=== PATIENT | male | born 1965 | race Caucasian/White ===

== ENCOUNTER → 2017-02-13 | Outpatient (CLI) | payer OTHER ==
[~2017-02-13] MED LIST: AMLODIPINE BESY10 MG PO; ASPIRIN EC81 M1 PO; GARCINIA CAMBO1 EACH PO; HYDROCHLOROTHIA25 MG PO; METOPROLOL TAR25 MG PO; MOBIC PO; NAPROSYN500 MG PO; TRIAMTERENE-HCT1 TA8 PO
--- NOTE | ~2017-02-13 | CT3 ---
STS. [facility] A Service of [facility] & [facility] RADIOLOGY TEXT RESULTS PATIENT: AVINASH LLAMAS LOCATION: [facility] : 67 UNIT #: [id number] AGE: [address]: Elizabeth Larson MD SEX: M ORDER DR: [id number] [place] [id number] O MR#: [id number] Acc #: [id number] NAME: AVINASH LLAMAS : 1965 SEX: M STUDY DATE/TIME: 02/13/2017 9:47 UNIT: SCT ROOM: STUDY DESCRIPTION: CT Abd and Pelv WWo Cont Attending Physician: Elizabeth Larson M.D. Referring Physician: Elizabeth Larson M.D. Ordering Physician: Elizabeth Larson M.D. Primary Care Physician: Elizabeth Larson M.D. MEDICAL IMAGING REPORT This report is preliminary unless electronic signature is present. EXAM CT abdomen without contrast, CT abdomen and pelvis with contrast 02/13/2017 INDICATIONS Lower back and flank pain for the past year. Reported renal lesion on previous MRI. PROCEDURE Unenhanced CT of the abdomen. Postcontrast CT of the abdomen and pelvis with multiphase acquisition through the kidneys. This CT exam was performed with one or more of the following radiation dose reduction techniques: automatic exposure control, adjustment of mA and/or kV according to patient size, and iterative reconstruction. COMPARISON None. No previous MRI including the kidneys is available at this institution. FINDINGS ABDOMEN WITHOUT CONTRAST: Included lung bases are clear. There is mild hepatic steatosis. No radiodense gallstones. No radiodense renal calculus. ABDOMEN WITH CONTRAST: Kidneys enhance symmetrically. 1.8 cm enhancing lesion in the posterior left mid kidney. Precontrast HU value is 12.4. The postcontrast HU value is 64.5. No other enhancing renal mass. No abnormal filling defect in the collecting systems. The left renal mass does not extend into the renal sinus fat. No retroperitoneal adenopathy or evidence for renal vein involvement. The spleen, adrenal glands, pancreas, gallbladder unremarkable. Bowel STS. [facility] A Service of [facility] & [facility] RADIOLOGY TEXT RESULTS PATIENT: AVINASH LLAMAS LOCATION: [facility] : 67 UNIT #: [id number] AGE: [address]: Elizabeth Larson MD SEX: M ORDER DR: loops are nondilated. Appendix is normal. PELVIS WITH CONTRAST: No pelvic mass or hernia. No aggressive appearing bone lesion. IMPRESSION 1. 1.8 cm enhancing lesion in the posterior left mid kidney, in keeping with a small renal cell carcinoma. 2. No evidence for metastatic disease in the abdomen or pelvis. 3. Mild hepatic steatosis. 1. Dictated by... Rajinder Medley M.D. THIS IS AN ELECTRONICALLY VERIFIED REPORT Rajinder Medley M.D. at 02/15/2017 2:11 PM Rico TD: 02/13/2017 17:47 JOB #: [id number] MEDICAL IMAGING REPORT
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
[2017-02-13 08:55] LABS: POC - CREATININE 1.05 mg/dL (0.64-1.27); POC - GFR >60.0 mL/min (>60)
== END | disposition home or self-care (01) ==
LOC: SCT 08:27
PROVIDERS: Family Medicine
DX: N28.1 Cyst of kidney, acquired (principal); M54.2 Cervicalgia; N28.89 Other specified disorders of kidney and ureter; K76.0 Fatty (change of) liver, not elsewhere classified; M47.812 Spondylosis without myelopathy or radiculopathy, cervical region
CPT/HCPCS: 72141; 74178; 82565; Q9967

== ENCOUNTER → 2017-02-26 | Outpatient (CLI) | payer OTHER ==
--- NOTE | ~2017-02-26 | US85 ---
[facility]. [facility] A Service of [facility] RADIOLOGY TEXT RESULTS PATIENT: AVINASH LLAMAS LOCATION: [facility] : 67 UNIT #: [id number] AGE: [address]: Elizabeth Larson MD SEX: M ORDER DR: [id number] [place] [id number] O MR#: [id number] Acc #: [id number] NAME: AVINASH LLAMAS : 1965 SEX: M STUDY DATE/TIME: 02/26/2017 12:43 UNIT: [facility] ROOM: STUDY DESCRIPTION: [facility] [place] [facility] Attending Physician: Elizabeth Larson M.D. Referring Physician: Elizabeth Larson M.D. Ordering Physician: Elizabeth Larson M.D. Primary Care Physician: Elizabeth Larson M.D. MEDICAL IMAGING REPORT This report is preliminary unless electronic signature is present. EXAM Left lower extremity venous duplex scan DATE OF EXAMINATION 02/26/2017 HISTORY Left calf pain and swelling. FINDINGS High-resolution B-mode imaging and color flow Doppler analysis was performed of the deep and superficial veins of the left lower extremity. All veins are fully compressible with no intraluminal thrombus. Spontaneous and phasic flow is noted in left common femoral, deep femoral, femoral, and popliteal veins. Flow is demonstrated in left anterior tibial, posterior tibial, and peroneal veins. Flow is also present in the left great saphenous vein. IMPRESSION Normal venous examination of the left lower extremity. No deep or superficial vein thrombosis is demonstrated in the left leg. These results were discussed with Dr. Larson at the time of the study. Dictated by... Yoel Allison M.D. THIS IS AN ELECTRONICALLY VERIFIED REPORT Yoel Allison M.D. at 02/27/2017 8:15 AM MANAV/diony [facility] A Service [facility] RADIOLOGY TEXT RESULTS PATIENT: AVINASH LLAMAS LOCATION: [facility] : 67 UNIT #: [id number] AGE: [address]: Elizabeth Larson MD SEX: M ORDER DR: TD: 02/26/2017 15:08 JOB #: [id number] MEDICAL IMAGING REPORT Page 1 of 1
== END | disposition home or self-care (01) ==
LOC: SNIV 12:30
DX: M79.662 Pain in left lower leg (principal); M79.89 Other specified soft tissue disorders
CPT/HCPCS: 93971